=== PATIENT | female | born 1955 | race Caucasian/White ===

== ENCOUNTER → 2018-03-31 | Outpatient (CLI) | payer BC ==
[~2018-03-31] MED LIST: CENESTIN PO; ESC10 PO; HYDR-3250 PO; LEXAPRO PO; [UNRECOGNIZED DRUG - CODE] PO
--- NOTE | 2018-03-31 15:18 | RADIOLOGY IMAGING REPORT ---
FACILITY: [facility] PATIENT NAME: JOSHUA FREEMAN : [id number] MR: [id number] V: [id number] EXAM DATE: ORDERING PHYSICIAN: LYNDSEY COOMBS TECHNOLOGIST: Marlyn Winter PROCEDURE:BILATERAL DIGITAL SCREENING MAMMOGRAM WITH CAD ASSISTED INTERPRETATION & 3D TOMOSYNTHESIS COMPARISON:Prior mammograms 09/04/16, 12/24/14, 03/25/12. INDICATIONS:SCREENING FINDINGS: There's predominant fatty replacement throughout the breast. The parenchymal pattern has remained stable allowing for difference in mammographic technique & patient positioning. There is no evidence of malignant appearing mass, malignant appearing calcifications or other secondary sign of malignancy in either breast. DIAGNOSTIC CATEGORY 1--NEGATIVE. RECOMMENDATIONS: ROUTINE MAMMOGRAM AND CLINICAL EVALUATION. IMPRESSION: BIRADS 1: Negative. No significant abnormality is seen. Dictated by: Cynthia Gutierrez M.D. on 03/31/2018 at 9:34 Transcribed by: JOHN on 03/31/2018 at 10:06 Approved by: Cynthia Gutierrez M.D. on 03/31/2018 at 15:17 [facility]
== END ==
LOC: MAMO 00:27
PROVIDERS: ATTEND Family Medicine
DX: Z12.31 Encounter for screening mammogram for malignant neoplasm of breast (principal)
CPT/HCPCS: 77063; 77067

== ENCOUNTER → 2018-04-26 | Outpatient (CLI) | payer BC ==
[~2018-04-26] MED LIST changes: +BARIUM SULFATE 176 GM BTL PO ONE; +BARIUM SULFATE 340 GM POWD ONE
--- NOTE | 2018-04-26 10:48 | RADIOLOGY IMAGING REPORT ---
FACILITY: [facility] PATIENT NAME: Mirna Lawton : 1955 MR: [id number] V: [id number] EXAM DATE: ORDERING PHYSICIAN: LYNDSEY GUY TECHNOLOGIST: Location: [facility] - [place], [place] Patient: Mirna Lawton : 1955 Visit/Account:[id number] Date of Sevice: 04/26/2018 THYROID HISTORY: Pharyngoesophageal dysphasia COMPARISON: None. FINDINGS: SIZE: Right lobe: 5.5 x 1.2 x 1.8 cm Left lobe: 2.6 x 1.3 x 1.1 cm Isthmus: 2 mm PARENCHYMA: Homogeneous. NODULES: Right lobe: * In the superior pole there is a well-circumscribed 7 mm hypoechoic nodule. * In the inferior pole there is a slightly lobular isoechoic nodule measuring 3.2 cm in maximum dime nsion Left lobe: * In the mid left lobe there is a well-circumscribed hypoechoic nodule measuring 1.4 cm in maximum d imension Isthmus: * None discrete. VASCULARITY: Within normal limits. ADDITIONAL FINDINGS: None. IMPRESSION: There are bilateral thyroid nodules. Ultrasound-guided fine-needle aspiration is recommended for the 3.2 cm nodule inferior right lobe and the 1.4 cm nodule in the mid left lobe. REFERENCE: 2015 [place] [employer] Management Guidelines for Adult Patients with Thyroid Nodules and D ifferentiated Thyroid Cancer: The [place] [employer] Guidelines Task Force on Thyroid Nodul es and Differentiated Thyroid Cancer. SONOGRAPHIC PATTERNS: * Benign: Purely cystic nodules (no solid component); estimated risk of malignancy <1 percent; no bi opsy recommended. * Very Low Suspicion: Spongiform or partially cystic nodules without any of the sonographic features described in low, intermediate, or high suspicion patterns; estimated risk of malignancy <3 percent; consider FNA at > 2 cm (Observation without FNA is also a reasonable option). * Low Suspicion: Isoechoic or hyperechoic solid nodule, or partially cystic nodule with eccentric so lid areas, without microcalcification, irregular margin or ETE (extra-thyroidal extension), or taller than wide shape; estimated risk of malignancy 5-10 percent; recommend FNA at >1.5 cm. * Intermediate Suspicion: Hypoechoic solid nodule with smooth margins without microcalcifications, E TE (extra-thyroidal extension), or taller than wide shape; estimated risk of malignancy 10-20 percent ; recommend FNA at > 1 cm. * High Suspicion: Solid hypoechoic nodule or solid hypoechoic component of a partially cystic nodule with one or more of the following features: irregular margins (infiltrative, microlobulated), microc alcifications, taller than wide shape, rim calcifications with small extrusive soft tissue component, evidence of ETE (extra-thyroidal extension); estimated risk of malignancy >70-90 percent; recommend FNA at > 1 cm. NOTES: * Although a sonographically suspicious subcentimeter thyroid nodule without evidence of extrathyroi yves extension or sonographically suspicious lymph nodes may be observed with close sonographic follow -up rather than pursuing immediate FNA, patient age and preference may modify decision-making. A > 50% interval increase in nodule volume and/or development of new suspicious sonographic features are felt to be a valid reasons for potential re-aspiration of a nodule previously shown to have benig n FNA cytology. Report Dictated By: Cynthia Gutierrez MD at 04/26/2018 10:41 AM Report E-Signed By: Cynthia uGtierrez MD at 04/26/2018 10:44 AM WSN:[email or web address]
--- NOTE | 2018-04-26 13:23 | RADIOLOGY IMAGING REPORT ---
FACILITY: [facility] [place] PATIENT NAME: Mirna aLwton : 1955 MR: [id number] V: [id number] EXAM DATE: ORDERING PHYSICIAN: LYNDSEY GUY TECHNOLOGIST: Location: [facility] - [place] Patient: Mirna Lawton : 1955 Visit/Account:[id number] Date of Sevice: 04/26/2018 Exam type: ESOPHAGRAM History: Pharyngoesophageal dysphasia Comparison: None. Findings: Double contrast esophagram was performed with thick and thin barium and air contrast. There is a pro minent impression along the posterior wall the cervical esophagus likely related to the cricopharynge us muscle. This appeared to be a transient phenomenon. There is a small hiatal hernia is very mild narrowing at the lower esophageal sphincter. Small to moderate amount of gastroesophageal reflux was observed. The fluoroscopy dose area product was 268.7 micro-Kaufman per meter squared IMPRESSION: 1. There is a transient impression upon the posterior wall the cervical esophagus likely related to the cricopharyngeus muscle Small hiatal hernia with very mild narrowing at the lower esophageal sphincter and a small to moderat e amount of gastroesophageal reflux Report Dictated By: Cynthia Gutierrez MD at 04/26/2018 1:17 PM Report E-Signed By: Cynthia Gutierrez MD at 04/26/2018 1:20 PM WSN:[email or web address]
== END ==
LOC: US 01:21
PROVIDERS: ATTEND Surgery
DX: K44.9 Diaphragmatic hernia without obstruction or gangrene (principal); K21.9 Gastro-esophageal reflux disease without esophagitis; R13.14 Dysphagia, pharyngoesophageal phase; E04.2 Nontoxic multinodular goiter
CPT/HCPCS: 74220; 76536

== ENCOUNTER 2018-05-13 02:12 | Day surgery (SDC) | payer BC ==
[~2018-05-13] VITALS: Ht 172.7 cm; Wt 87.5 kg
[~2018-05-13 02:12] MED LIST changes: -BARIUM SULFATE 176 GM BTL PO ONE; -BARIUM SULFATE 340 GM POWD ONE
[2018-05-13 08:55] VITALS: BP 123/75
[2018-05-13] MEDS ORDERED: NORMOSOL R SOLN(*) 1000 ML BAG 1,000 ML IV PRN (10:30)
[2018-05-13] MEDS ORDERED: LIDOCAINE/SOD BICARB 8.4% SYR ID ONE (10:30)
[2018-05-13] MEDS ORDERED: MIDAZOLAM 2 MG/2 ML VIAL ONE (11:16)
[2018-05-13 12:18] VITALS: BP 134/92
--- NOTE | 2018-05-13 12:26 | Short(Outpt) Discharge Summary ---
Discharge Summary Reason for Hosp/Final Diag: (1) Dysphagia Status: Chronic Hospital Course & Plan: EGD with esophageal dilation and colonoscopy completed without problems. (2) Globus sensation Status: Chronic (3) History of colon polyps Status: Chronic Departure Discharge to: Home, Self Care Discharge Instructions Home Meds Reported Medications Escitalopram Oxalate (Lexapro) 10 Mg Tab, 1 TAB PO QPM 02/09/12 Diet: Regular Activity: As Tolerated Special Instructions: Your upper endoscopy and colonoscopy were completed without problems and your prep was excellent (Good Job!!). I didn't find any polyps, inflammation, or signs of cancer in your upper GI tract or your colon. I did dilate your esophagus and you may spit up blood but this should last for more than 24 hours as your esophagus heals. My office will call you in the next week to see how you're doing after the dilation but your next colonoscopy should be in 10 years since, although you've had a colon polyp or polyps removed, it's been 10 years since then and you haven't formed any new polyps in the mean time. Problem Qualifiers (1) Dysphagia: Dysphagia type: oropharyngeal phase Qualified Codes: R13.12 - Dysphagia, oropharyngeal phase LYNDSEY GUY MD May 13, 2018 12:26
[2018-05-13 12:30] VITALS: BP 111/64
[2018-05-13 12:45] VITALS: BP 97/52
[2018-05-13 13:06] VITALS: BP 112/69
[2018-05-13 13:10] VITALS: BP 102/79
== END 2018-05-13 13:30 | disposition home or self-care (01) ==
LOC: OR 02:12
PROVIDERS: ATTEND Surgery
DX: Z12.11 Encounter for screening for malignant neoplasm of colon (principal); Z86.010 Personal history of colon polyps
CPT/HCPCS: 00812; 43248; 45378; C1769; J2250

== ENCOUNTER → 2018-05-21 | Outpatient (CLI) | payer BC | LOC: LAB 10:58 | PROVIDERS: ATTEND Surgery | DX: Z01.812 Encounter for preprocedural laboratory examination (principal) | CPT/HCPCS: 36415; 85610 ==

== ENCOUNTER → 2018-05-24 | Outpatient (CLI) | payer BC ==
--- NOTE | 2018-05-24 17:01 | RADIOLOGY IMAGING REPORT ---
FACILITY: [facility] PATIENT NAME: Mirna Lawton : 1955 MR: [id number] V: [id number] EXAM DATE: ORDERING PHYSICIAN: LYNDSEY GUY TECHNOLOGIST: Location: [facility] Patient: Mirna Lawton : 1955 Visit/Account:[id number] Date of Sevice: 05/24/2018 Exam type: THYROID BIOPSY FINE NEEDLE ASP History: Bilateral thyroid nodules Comparison: April 26, 2018. Findings: Informed consent was obtained. The right and left sides the patient's neck were prepped and draped u sual sterile fashion. Attention was first directed towards the right thyroid nodule. Local anesthes ia was accomplished with 1% lidocaine. Four 25-gauge FNA biopsies were obtained through the solid hy poechoic nodule in the inferior aspect the right lobe samples were given to the pathology technologis t for processing. Attention was then directed towards the left thyroid nodule. Local anesthesia was again a competent 1% lidocaine. Under sonographic guidance four 25-gauge FNA biopsies were obtained through the left-s ided solid thyroid nodule samples were given to the radioisotope technologist for processing. The proce dure was accomplished without apparent complication. IMPRESSION: 1. Successful sonographically guided bilateral thyroid nodule FNA biopsies Report Dictated By: Cynthia Gutierrez MD at 05/24/2018 4:54 PM Report E-Signed By: Cynthia Gutierrez MD at 05/24/2018 4:57 PM WSN:[email or web address]
== END ==
LOC: US 02:06
PROVIDERS: ATTEND Surgery
DX: E04.1 Nontoxic single thyroid nodule (principal)
CPT/HCPCS: 10022; 76942; 88104; 88172

== ENCOUNTER → 2018-11-30 | Outpatient (CLI) | payer BC ==
--- NOTE | 2018-11-30 09:38 | RADIOLOGY IMAGING REPORT ---
FACILITY: [facility] PATIENT NAME: Mirna Lawton : 1955 MR: [id number] V: [id number] EXAM DATE: ORDERING PHYSICIAN: LYNDSEY GUY TECHNOLOGIST: Location: [facility] Patient: Mirna Lawton : 1955 Visit/Account:[id number] Date of Sevice: 11/30/2018 THYROID HISTORY: Follow-up thyroid nodules COMPARISON: May 24, 2018 FINDINGS: SIZE: Right lobe: 5.4 x 1.2 x 1.8 cm Left lobe: 3.5 x 1.3 x 1.1 cm Isthmus: 2 mm PARENCHYMA: Homogeneous. NODULES: Right lobe: * In the superior pole of the right lobe there is a 7 mm well-circumscribed hypoechoic nodule that a ppears unchanged in size. * In the inferior right lobe there is a 3 x 1.3 x 2 cm slightly lobular isoechoic nodule that appear s similar in size Left lobe: * The mid left lobe there is a well-circumscribed hypoechoic nodule measuring 1.4 x 0.7 x 1 cm that appears relatively unchanged Isthmus: * None discrete. VASCULARITY: Within normal limits. ADDITIONAL FINDINGS: None. IMPRESSION: Bilateral thyroid nodules have remained stable when compared the prior study REFERENCE: 2015 [place] [employer] Management Guidelines for Adult Patients with Thyroid Nodules and D ifferentiated Thyroid Cancer: The [place] [employer] Guidelines Task Force on Thyroid Nodul es and Differentiated Thyroid Cancer. SONOGRAPHIC PATTERNS: * Benign: Purely cystic nodules (no solid component); estimated risk of malignancy <1 percent; no bi opsy recommended. * Very Low Suspicion: Spongiform or partially cystic nodules without any of the sonographic features described in low, intermediate, or high suspicion patterns; estimated risk of malignancy <3 percent; consider FNA at > 2 cm (Observation without FNA is also a reasonable option). * Low Suspicion: Isoechoic or hyperechoic solid nodule, or partially cystic nodule with eccentric so lid areas, without microcalcification, irregular margin or ETE (extra-thyroidal extension), or taller than wide shape; estimated risk of malignancy 5-10 percent; recommend FNA at >1.5 cm. * Intermediate Suspicion: Hypoechoic solid nodule with smooth margins without microcalcifications, E TE (extra-thyroidal extension), or taller than wide shape; estimated risk of malignancy 10-20 percent ; recommend FNA at > 1 cm. * High Suspicion: Solid hypoechoic nodule or solid hypoechoic component of a partially cystic nodule with one or more of the following features: irregular margins (infiltrative, microlobulated), microc alcifications, taller than wide shape, rim calcifications with small extrusive soft tissue component, evidence of ETE (extra-thyroidal extension); estimated risk of malignancy >70-90 percent; recommend FNA at > 1 cm. NOTES: * Although a sonographically suspicious subcentimeter thyroid nodule without evidence of extrathyroi yves extension or sonographically suspicious lymph nodes may be observed with close sonographic follow -up rather than pursuing immediate FNA, patient age and preference may modify decision-making. A > 50% interval increase in nodule volume and/or development of new suspicious sonographic features are felt to be a valid reasons for potential re-aspiration of a nodule previously shown to have benig n FNA cytology. Report Dictated By: Cynthia Gutierrez MD at 11/30/2018 9:26 AM Report E-Signed By: Cynthia Gutierrez MD at 11/30/2018 9:33 AM WSN:[email or web address]
== END ==
LOC: US 00:38
PROVIDERS: ATTEND Surgery
DX: E04.2 Nontoxic multinodular goiter (principal)
CPT/HCPCS: 76536